=== PATIENT | female | born 1975 | race Two or more races ===

== ENCOUNTER → 2017-05-11 | Outpatient (CLI) | payer BC ==
--- NOTE | 2017-05-11 15:36 | RADRPT ---
PROCEDURE: XR Knees. CLINICAL INDICATION: Bilateral knee pain. TECHNIQUE: Total of eight views. Weightbearing frontal, oblique, and lateral views of the both kn ees. Patellar views of both knees. COMPARISON: No prior study is available for comparison. FINDINGS: There is no fracture or dislocation. The soft tissues are normal. Articular surfaces are intact. There is no lytic or blastic lesion. There is no radiopaque foreign body. IMPRESSION: 1. Unremarkable images of both knees. RPTAT: QQ .Miki Darling MD, MD Date Time Electronically viewed and signed by .Miki Darling MD, MD on 05/11/2017 15:36 .R/
--- NOTE | 2017-05-12 05:36 | HKNOTE ---
DATE OF SERVICE: 05/11/2017 CHIEF COMPLAINT: Bilateral knee pain. HISTORY OF PRESENT ILLNESS: Mr. Flanagan is a 41-year-old male who is here for evaluation of bilate ral knee pain. The patient reports that his knees have become swollen over the past 3 to 4 months. There is no history of trauma, no history of fever or chills. Left knee is worse than the right. The patient is able to walk and do most of his activities including running, but the patient states that the pain increases at night. The pain is associated with swelling and stiffness. The patient is concerned because his mother has a history of bilateral knee replacement. He denies any other reese int pains. 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 PAST MEDICAL HISTORY: Negative for major medical problems. MEDICATIONS: None. ALLERGIES: NONE. REVIEW OF SYSTEMS: Negative for chest pain, shortness of breath, nausea, vomiting, diarrhea or join t pains. PHYSICAL EXAMINATION: GENERAL: Shows a pleasant male. He is anxious, awake, alert and oriented, breathing comfortably. HEART: Has a regular rate and rhythm. VITAL SIGNS: Stable with a heart rate of 80, blood pressure 127/84, temperature 98.4, respirations 12, height is 5 feet 9 inches, weight 205 pounds. KNEES: Shows effusions in both knees, left worse than right. Range of motion of the knees is full with no instability and no neurovascular deficits. There is mild tenderness in the suprapatellar ar ea. Mild warmth is noted as well. The knees are stable. X-rays of both knees show minimal degenerative changes in the joints. ASSESSMENT AND PLAN: A 41-year-old male with bilateral knee effusions. There is concern for autoim mune disease or rheumatologic process. I will obtain lab work and his left knee was aspirated. The fluid will be sent for culture and crystals. The patient will follow up in a few days. If culture s are negative a cortisone injection will be recommended. In the meantime, physical therapy can be started as well. Using sterile precautions, the left knee was aspirated, 20 mL of bloody effusion w as drained and this will be sent for analysis. Dictated By: GARCIA MAYNARD/DARNELL Conf#: [id number] [facility]#: [id number]
== END | disposition home or self-care (01) ==
LOC: HKI 14:52
PROVIDERS: ATTEND Orthopaedic Surgery
DX: M25.462 Effusion, left knee (principal); M25.461 Effusion, right knee
CPT/HCPCS: 20610; 73564; G0463